=== PATIENT | female | born 1955 | race Caucasian/White ===

== ENCOUNTER 2025-06-03 15:22 | Emergency (ER) | payer MEDICARE, OTHER, SELFPAY ==
[2025-06-03 15:26] VITALS: BP 181/88
[2025-06-03 15:39] VITALS: BMI 25.1
--- NOTE | 2025-06-03 15:50 | ED.GENMED ---
History of Present Illness
General
Chief Complaint: Eye Problems
Time Seen by Provider: 06/03/25 15:34
History of Present Illness
History of Present Illness:
70-year-old female without significant past medical history presenting to the emergency department for concern of corneal abrasion. Patient reports prior to arrival she was moving a tree in her house and she struck her right eye with a branch. She
notes a foreign body sensation to the medial aspect of her right eye. Denies any significant visual changes. Notes irritation and tearing. She does have contacts at home, however has not been wearing them, has not wearing her glasses. Denies
additional acute medical complaints.
Phy Exam
Physical Exam
Physical Exam:
General: Well-appearing, no clinical signs of dehydration, nontoxic and in no acute distress
HEENT: protecting airway. Scleral injection without evidence of retained foreign body
Neck: appears supple
CV: Normal heart rate
Resp: No accessory muscle use, no increased work of breathing
Abd: no distention
Extremities: No deformities, no swelling
Neuro: alert, no focal neurologic deficit
: deferred
Rectal: deferred
Psych: Normal affect
Skin: Intact
Course
Orders/Labs/Results
Orders:
Orders
06/03/25 15:49
Erythromycin (Ilotycin) [Erythromycin 0.5% Ophthalmic Ointment] See Dose Instructions OPHTH NOW STA
Vital Signs
Initial and Last Documented VS:
Initial Vital Signs
Temp Pulse Resp BP Pulse Ox
98.0 F 73 20 181/88 97
06/03/25 15:26 06/03/25 15:26 06/03/25 15:26 06/03/25 15:26 06/03/25 15:26
Last Documented Vital Signs
Temp Pulse Resp BP Pulse Ox
98.0 F 73 20 181/88 97
06/03/25 15:26 06/03/25 15:26 06/03/25 15:26 06/03/25 15:26 06/03/25 15:26
MDM/Problems Addressed
MDM/Problems Addressed:
70-year-old female presenting to the emergency department for concern of right eye corneal abrasion. Vital signs on arrival are significant for high blood pressure.
On exam patient is resting comfortably, no acute distress or discomfort. Normal appearance externally to the right eye with extraocular movements intact. Pupils equal and reactive. No sign of foreign body. On the floor staining, obvious corneal
abrasion to the inferior medial aspect of the right eye. This can with patient's symptoms. Will start patient on antibiotics. Otherwise feel stable for discharge with outpatient ophthalmology follow-up. Return precautions discussed and patient
verbalized understand
*Pulse Oximetry
SaO2: 97
Oxygen Mode of Delivery: Room air
Patient hypoxic: no
*Critical Care Note
Total Time (30-74mins, 75-104mins- exclusive of procedures): Not Applicable
ED Attending Note
-
Portions of this chart may have been created with voice recognition software.� Occasional wrong word or��sound alike� substitutions may have occurred due to the inherent limitations of voice recognition software.
Discharge Plan
Departure
Referrals:
UNKNOWN - PT DOES,NOT KNOW [Unknown Provider]
Interventions
Interventions:
*Risk Screen - Suicide Last Done: 06/03/25 15:39
*General Assessment Last Done: 06/03/25 15:26
*Neglect/Abuse Screening Last Done: 06/03/25 15:39
*ED COVID-19 Vaccine History Last Done: 06/03/25 15:39
*ED Influenza Vaccine History Last Done: 06/03/25 15:39
[facility] Risk Assessment Tool Last Done: 06/03/25 15:39
Discharge Date and Time
Print Language: [id number]
[2025-06-03] MEDS: ERYTHROMYCIN 0.5% OPHTHALMIC OINTMENT 1 APPLIC OPHTH (15:56)
[2025-06-03 16:08] VITALS: BP 155/100
== END 2025-06-03 16:09 | disposition home or self-care (01) ==
LOC: EMR 15:22
PROVIDERS: EMERGENCY PHYSICIAN Student in an Organized Health Care Education/Training Program; FAMILY PHYSICIAN Family Medicine
DX: S05.01XA Injury of conjunctiva and corneal abrasion without foreign body, right eye, initial encounter (principal); W22.8XXA Striking against or struck by other objects, initial encounter
CPT/HCPCS: 99283